=== PATIENT | male | born 1970 | race Caucasian/White ===

== ENCOUNTER 2021-07-05 12:03 | Emergency (ER) | payer BC ==
[2021-07-05] MEDS ORDERED: Tetracaine HCl/PF 0.5% 4 ML Bottle ONE (12:15)
[2021-07-05] MEDS ORDERED: Tetracaine HCl/PF 0.5% 4 ML Bottle EYERT ONE (12:16)
[2021-07-05] MEDS ORDERED: Diphtheria,Pertussis(Acell),Tetanus Vaccine 0.5 ML Syringe IM ONE (12:23)
== END 2021-07-05 13:32 | disposition home or self-care (01) ==
LOC: MW.ED 12:03
DX: T15.91XA Foreign body on external eye, part unspecified, right eye, initial encounter (principal); Z23 Encounter for immunization
CPT/HCPCS: 90471; 90715; 99283